=== PATIENT | female | born 1965 | race Hispanic/Latino ===

== ENCOUNTER 2019-06-21 05:35 | Day surgery (SDC) | payer OTHER ==
[~2019-06-21] VITALS: Ht 149.9 cm; Wt 52.2 kg
[2019-06-21] MEDS ORDERED: SODIUM CHLORIDE 0.9% 1000ML 1,000 ML IV ONE (06:30)
[2019-06-21 06:52] VITALS: BP 116/62
[2019-06-21] MEDS ORDERED: PROPOFOL 10 MG/ML 20ML VIAL IV ONE ×2 (07:52)
[2019-06-21] MEDS ORDERED: LIDOCAINE HCL 1% 20 ML VIAL ONE (07:53)
[2019-06-21 08:21] VITALS: BP 84/52
[2019-06-21 08:25] VITALS: BP 83/50
[2019-06-21 08:30] VITALS: BP 96/60
[2019-06-21 08:35] VITALS: BP 110/62
== END 2019-06-21 08:49 | disposition home or self-care (01) ==
LOC: ENDO 05:35 → DAH 05:35 → ENDO 08:49
PROVIDERS: ATTEND Internal Medicine
DX: Z12.11 Encounter for screening for malignant neoplasm of colon (principal); D12.0 Benign neoplasm of cecum
CPT/HCPCS: 45385; A4215; A4221; A4222; A4223; A4606; A4615; A4663; J2704 ×2; J7030